=== PATIENT | female | born 1935 | race Hispanic/Latino ===

== ENCOUNTER 2022-02-11 13:39 | Inpatient (IN) | payer OTHER ==
[2022-02-11] VITALS (14 sets, daily range): BP systolic 66–138; BP diastolic 30–72
[~2022-02-11] VITALS: Ht 152.4 cm; Wt 62.2 kg
[2022-02-11 15:44] LABS: BASOPHILS % (AUTO) 0.2 % (0.0-5.0); EOSINOPHILS % (AUTO) 0.2 % (0.0-8.0); HEMATOCRIT 33.6 % (36-48); LYMPHOCYTES % (AUTO) 6.6 % (21.0-51.0); MEAN CORPUSCULAR HGB CONC 31.5 g/dL (32.0-36.0); MONOCYTES % (AUTO) 4.3 % (3.0-13.0); NEUTROPHILS % (AUTO) 87.7 % (40.0-77.0); PLATELET COUNT (AUTO) 310 K/uL (130-400); RED BLOOD CELL COUNT(AUTO) 4.42 MIL/uL (4.00-5.50); RED CELL DISTRIBUTION WIDTH 16.9 % (11.0-15.5); WHITE BLOOD COUNT (AUTO) 23.7 K/uL (4.8-10.8)
[2022-02-11 15:54] LABS: CREATININE 1.2 mg/dL (0.5-1.5); POTASSIUM 4.2 mmol/L (3.5-5.1)
[2022-02-11 15:59] LABS: ALBUMIN 2.8 g/dL (3.5-5.0); TOTAL PROTEIN, SERUM 7.2 g/dL (6.0-8.3)
[2022-02-11 16:26] LABS: APPEARANCE,URINE CLEAR (CLEAR); BILIRUBIN,URINE NEGATIVE (NEGATIVE); COLOR,URINE YELLOW (YELLOW); GLUCOSE, URINE (UA) NEGATIVE (NEGATIVE); KETONES,URINE 5 mg/dL (NEGATIVE); LEUKOCYTE ESTERASE ,URINE 75 Leu/uL (NEGATIVE); NITRATE,URINE NEGATIVE (NEGATIVE); OCCULT BLOOD,URINE NEGATIVE (NEGATIVE); PROTEIN,URINE NEGATIVE (NEGATIVE); UROBILINOGEN,URINE 0.2 mg/dL (0.2-1.0)
[2022-02-11 16:51] LABS: MUCUS,URINE RARE LPF (None Seen); RBC,URINE 0-1 /HPF (0-1); SQUAMOUS EPITHELIAL CELL,UR RARE /HPF (0-2)
[2022-02-11] MEDS ORDERED: BUPIVACAINE/PF 0.5% 10ML VIAL ONE (16:53)
[2022-02-11] MEDS ORDERED: IOHEXOL 350 MG/ML 100ML INFUS..BTL IV ONE (16:54)
[2022-02-11] MEDS ORDERED: ZOSYN 3.375GM +NS 50ML IV ONE (18:00)
[2022-02-11] MEDS ORDERED: PROPOFOL 10 MG/ML 20ML VIAL IV ONE (18:51)
[2022-02-11] MEDS ORDERED: SUCCINYLCHOLINE CHLORIDE 20 MG/ML 10 ML VIAL ONE (18:51)
[2022-02-11] MEDS ORDERED: ROCURONIUM 10MG/1ML SYR 10 MG/ML ML ONE (18:52)
[2022-02-11] MEDS ORDERED: FENTANYL CITRATE PF 50 MCG/1 ML 2ML VIAL ONE (18:52)
[2022-02-11] MEDS ORDERED: MORPHINE 2 MG SYG IV PRN (19:00)
[2022-02-11] MEDS ORDERED: ACETAMINOPHEN 325 MG TAB PO PRN ×3 (19:00→22:00)
[2022-02-11] MEDS ORDERED: ONDANSETRON 4MG INJ IVP PRN (19:00)
[2022-02-11] MEDS ORDERED: 0.9%NACL 1000ML 1,000 ML IV SCH (19:00)
[2022-02-11] MEDS ORDERED: HYDROCODONE/ACETAMINOPHEN 5/325 MG TAB PO PRN (19:00)
[2022-02-11] MEDS: 0.9%NACL 1000ML 1,000 ML IV SCH (19:15)
[2022-02-11] MEDS ORDERED: EPHEDRINE SULFATE 50 MG/ML AMPULE ONE (19:19)
[2022-02-11] MEDS ORDERED: GLYCOPYRROLATE 1 MG/5 ML SYRINGE ONE (20:24)
[2022-02-11] MEDS ORDERED: NEOSTIGMINE 5MG/5ML SYR IV ONE (20:24)
[2022-02-11] MEDS ORDERED: MEPERIDINE-PF 25 MG/ML SYG ONE ×2 (20:46→21:02)
[2022-02-11] MEDS: ONDANSETRON 4MG INJ IVP PRN ×2 (20:49→21:14)
[2022-02-11] MEDS ORDERED: FAMOTIDINE 20MG VIAL IV SCH (21:00)
[2022-02-11] MEDS ORDERED: PANT40TA54 PO (21:50)
[2022-02-11] MEDS ORDERED: AMLO-257 PO (21:50)
[2022-02-11] MEDS ORDERED: LISI20TA24 PO (21:53)
[2022-02-11] MEDS ORDERED: FERR1TAB66 PO (21:53)
[2022-02-11] MEDS ORDERED: METR-172 PO (21:53)
[2022-02-11] MEDS ORDERED: DICY20TA3 PO (21:53)
[2022-02-11] MEDS ORDERED: ACET325C6 PO (21:53)
[2022-02-11] MEDS ORDERED: ONDA-104 PO (21:54)
[2022-02-11] MEDS ORDERED: MAGNESIUM 2GM PREMIX 50ML 50 ML IV PRN (22:00)
[2022-02-11] MEDS ORDERED: KCL 20 MEQ ERTAB PO PRN (22:00)
[2022-02-11] MEDS ORDERED: POTASSIUM CHLORIDE 10% ELIXIR 20 MEQ/15 ML UDCUP PO PRN (22:00)
[2022-02-11] MEDS ORDERED: ONDANSETRON 4MG INJ IV PRN (22:00)
[2022-02-11] MEDS ORDERED: LIDOCAINE HCL-MPF 1% 2ML VIAL IV PRN (22:00)
[2022-02-11] MEDS ORDERED: POTASSIUM CHLORIDE 20MEQ/100ML 100 ML IV PRN (22:00)
[2022-02-11] MEDS ORDERED: ONDANSETRON 4MG INJ IVP SCH (22:40)
[2022-02-11] MEDS: LACTATED RINGERS 1000ML 1,000 ML IV SCH (23:08)
[2022-02-12] VITALS (7 sets, daily range): BP systolic 98–135; BP diastolic 44–59
[2022-02-12 04:29] LABS: BASOPHILS % (AUTO) 0.2 % (0.0-5.0); HEMATOCRIT 31.8 % (36-48); MEAN CORPUSCULAR HEMOGLOBIN 24.3 pg (27.0-33.0); MEAN CORPUSCULAR HGB CONC 31.1 g/dL (32.0-36.0); MEAN CORPUSCULAR VOLUME 78.1 fL (79-99); NEUTROPHILS % (AUTO) 94.7 % (40.0-77.0); PLATELET COUNT (AUTO) 318 K/uL (130-400); RED BLOOD CELL COUNT(AUTO) 4.07 MIL/uL (4.00-5.50); RED CELL DISTRIBUTION WIDTH 17.3 % (11.0-15.5)
[2022-02-12 04:55] LABS: BAND NEUTROPHILS % (MANUAL) 7 % (0-2); CREATININE 1.1 mg/dL (0.5-1.5); LYMPHOCYTES % (MANUAL) 3 % (22-44); MAGNESIUM 1.9 mg/dL (1.80-2.40); MAN.DIFF COMMENT-IMPRESSION MANUAL DIFFERENTIAL; MONOCYTES % (MANUAL) 1 % (2-9); PHOSPHORUS 4.8 mg/dL (2.5-4.9); POTASSIUM 4.6 mmol/L (3.5-5.1); SEGMENTED NEUTROPHILS % 89 % (40-70)
[2022-02-12 04:56] LABS: PLATELET MORPHOLOGY COMMENT ADEQUATE
[2022-02-12 05:03] LABS: WHITE BLOOD COUNT (AUTO) 32.3 K/uL (4.8-10.8)
[2022-02-12] MEDS: FAMOTIDINE 20MG VIAL IV SCH (08:52)
[2022-02-12] MEDS: ENOXAPARIN SODIUM 40 MG/0.4 ML SYRINGE SQ SCH (08:53)
[2022-02-12] MEDS: ZOSYN 3.375GM+NS 50ML 50 ML IV SCH ×2 (08:53→20:56)
[2022-02-12] MEDS ORDERED: FAMOTIDINE 20MG VIAL IV SCH (09:00)
[2022-02-12 09:29] LABS: HEMOGLOBIN A1C 7.1 % (4.0-6.0)
[2022-02-12] MEDS: HYDROCODONE/ACETAMINOPHEN 5/325 MG TAB PO PRN (09:37)
[2022-02-12] MEDS: 0.9%NACL 1000ML 1,000 ML IV SCH (14:33)
[2022-02-12] MEDS: FLUCONAZOLE 200 MG/NS 100 ML IV SCH (14:35)
[2022-02-12] MEDS: LACTATED RINGERS 1000ML 1,000 ML IV SCH (14:40)
[2022-02-12] MEDS: MORPHINE 2 MG SYG IV PRN (18:06)
[2022-02-13] MEDS: MORPHINE 2 MG SYG IV PRN ×2 (00:58→19:23)
[2022-02-13] MEDS: 0.9%NACL 1000ML 1,000 ML IV SCH ×2 (01:01→13:38)
[2022-02-13 03:27] VITALS: BP 141/58
[2022-02-13 07:58] VITALS: BP 149/64
[2022-02-13] MEDS: HYDROCODONE/ACETAMINOPHEN 5/325 MG TAB PO PRN (08:27)
[2022-02-13] MEDS: FAMOTIDINE 20MG VIAL IV SCH (08:27)
[2022-02-13] MEDS: ZOSYN 3.375GM+NS 50ML 50 ML IV SCH ×2 (08:27→21:25)
[2022-02-13] MEDS: ENOXAPARIN SODIUM 40 MG/0.4 ML SYRINGE SQ SCH (08:28)
[2022-02-13 11:42] VITALS: BP 124/56
[2022-02-13] MEDS ORDERED: VANCOMYCIN PROTOCOL PER PHARMACY IV SCH (12:30)
[2022-02-13 12:45] LABS: HEMATOCRIT 27.6 % (36-48); MEAN CORPUSCULAR HEMOGLOBIN 24.2 pg (27.0-33.0); MEAN CORPUSCULAR HGB CONC 31.2 g/dL (32.0-36.0); MEAN CORPUSCULAR VOLUME 77.5 fL (79-99); RED BLOOD CELL COUNT(AUTO) 3.56 MIL/uL (4.00-5.50); RED CELL DISTRIBUTION WIDTH 17.2 % (11.0-15.5); WHITE BLOOD COUNT (AUTO) 14.5 K/uL (4.8-10.8)
[2022-02-13 12:57] LABS: POTASSIUM 4.2 mmol/L (3.5-5.1)
[2022-02-13 13:02] LABS: TOTAL PROTEIN, SERUM 5.6 g/dL (6.0-8.3)
[2022-02-13] MEDS: FLUCONAZOLE 200 MG/NS 100 ML IV SCH (13:37)
[2022-02-13] MEDS: VANCOMYCIN 1G/250ML KIT 250 ML IV SCH (13:38)
[2022-02-13 16:45] VITALS: BP 157/63
[2022-02-13 20:29] VITALS: BP 152/71
[2022-02-14] VITALS (8 sets, daily range): BP systolic 132–170; BP diastolic 63–76
[2022-02-14] MEDS: 0.9%NACL 1000ML 1,000 ML IV SCH ×2 (00:35→14:35)
[2022-02-14] MEDS: MORPHINE 2 MG SYG IV PRN ×2 (01:28→10:03)
[2022-02-14 04:15] LABS: HEMATOCRIT 25.3 % (36-48); MEAN CORPUSCULAR HEMOGLOBIN 23.9 pg (27.0-33.0); MEAN CORPUSCULAR HGB CONC 30.8 g/dL (32.0-36.0); MEAN CORPUSCULAR VOLUME 77.6 fL (79-99); RED BLOOD CELL COUNT(AUTO) 3.26 MIL/uL (4.00-5.50); RED CELL DISTRIBUTION WIDTH 17.1 % (11.0-15.5); WHITE BLOOD COUNT (AUTO) 9.8 K/uL (4.8-10.8)
[2022-02-14 04:26] LABS: CREATININE 0.7 mg/dL (0.5-1.5); POTASSIUM 4.1 mmol/L (3.5-5.1)
[2022-02-14] MEDS: FAMOTIDINE 20MG VIAL IV SCH (09:13)
[2022-02-14] MEDS: ZOSYN 3.375GM+NS 50ML 50 ML IV SCH ×2 (09:13→20:17)
[2022-02-14] MEDS: ENOXAPARIN SODIUM 40 MG/0.4 ML SYRINGE SQ SCH (09:14)
[2022-02-14] MEDS: VANCOMYCIN 1G/250ML KIT 250 ML IV SCH (12:27)
[2022-02-14] MEDS: FLUCONAZOLE 200 MG/NS 100 ML IV SCH (12:27)
[2022-02-14] MEDS: AMLODIPINE 5 MG TAB PO SCH (19:04)
[2022-02-14] MEDS: LISINOPRIL 20 MG TABLET PO SCH ×2 (19:06→20:17)
[2022-02-14] MEDS ORDERED: BISACODYL 5 MG TABLET.DR PO ONE (19:13)
[2022-02-14] MEDS: BISACODYL 5 MG TABLET.DR PO SCH (20:17)
[2022-02-14] MEDS: HYDROCODONE/ACETAMINOPHEN 5/325 MG TAB PO PRN (21:00)
[2022-02-15 04:16] LABS: BASOPHILS % (AUTO) 0.3 % (0.0-5.0); EOSINOPHILS % (AUTO) 2.3 % (0.0-8.0); HEMATOCRIT 26.4 % (36-48); LYMPHOCYTES % (AUTO) 21.7 % (21.0-51.0); MEAN CORPUSCULAR HGB CONC 31.4 g/dL (32.0-36.0); MEAN CORPUSCULAR VOLUME 76.3 fL (79-99); MONOCYTES % (AUTO) 9.9 % (3.0-13.0); NEUTROPHILS % (AUTO) 65.2 % (40.0-77.0); PLATELET COUNT (AUTO) 325 K/uL (130-400); RED BLOOD CELL COUNT(AUTO) 3.46 MIL/uL (4.00-5.50)
[2022-02-15 04:24] LABS: CREATININE 0.7 mg/dL (0.5-1.5); POTASSIUM 3.9 mmol/L (3.5-5.1)
[2022-02-15 04:40] VITALS: BP 148/64
[2022-02-15 07:44] VITALS: BP 176/84
[2022-02-15] MEDS: FAMOTIDINE 20MG VIAL IV SCH (08:16)
[2022-02-15] MEDS: AMLODIPINE 5 MG TAB PO SCH (08:16)
[2022-02-15] MEDS: BISACODYL 5 MG TABLET.DR PO SCH (08:17)
[2022-02-15] MEDS: HYDROCODONE/ACETAMINOPHEN 5/325 MG TAB PO PRN (08:19)
[2022-02-15] MEDS: ENOXAPARIN SODIUM 40 MG/0.4 ML SYRINGE SQ SCH (08:22)
[2022-02-15] MEDS: ZOSYN 3.375GM+NS 50ML 50 ML IV SCH (08:22)
[2022-02-15 11:04] VITALS: BP 118/57
[2022-02-15] MEDS: FLUCONAZOLE 200 MG/NS 100 ML IV SCH (12:22)
[2022-02-15] MEDS: VANCOMYCIN 1G/250ML KIT 250 ML IV SCH (12:22)
[2022-02-15] MEDS ORDERED: 0.9% NACL 250ML 250 ML ONE (12:32)
[2022-02-15] MEDS ORDERED: LEVO-70 PO (13:17)
[2022-02-15] MEDS ORDERED: METR-172 PO (13:17)
[2022-02-16] MEDS ORDERED: IRON CARBONYL PO SCH (09:00)
[2022-02-16] MEDS ORDERED: ASCORBIC ACID PO SCH (09:00)
== END 2022-02-15 16:45 | disposition home or self-care (01) | DRG 853 ==
LOC: EDH 13:39 → EDHIP 13:40 → EDH 18:57 → 4AH 21:13
PROVIDERS: ADMIT Internal Medicine; ATTEND Internal Medicine
PROC: 0DTJ0ZZ Resection of Appendix, Open Approach (ICD-10-PCS; principal; 2022-02-11 18:59)
PROC: 0WJG4ZZ Inspection of Peritoneal Cavity, Percutaneous Endoscopic Approach (ICD-10-PCS; 2022-02-11 18:59)
PROC: 0W9F00Z Drainage of Abdominal Wall with Drainage Device, Open Approach (ICD-10-PCS; 2022-02-11 18:59)
DX: A41.9 Sepsis, unspecified organism (principal); I21.9 Acute myocardial infarction, unspecified; K35.33 Acute appendicitis with perforation, localized peritonitis, and gangrene, with abscess; Z20.822 Contact with and (suspected) exposure to COVID-19; K57.20 Diverticulitis of large intestine with perforation and abscess without bleeding; E44.0 Moderate protein-calorie malnutrition; I10 Essential (primary) hypertension; D64.9 Anemia, unspecified; B96.20 Unspecified Escherichia coli [E. coli] as the cause of diseases classified elsewhere; E11.9 Type 2 diabetes mellitus without complications; I25.2 Old myocardial infarction; Z74.01 Bed confinement status; Z86.73 Personal history of transient ischemic attack (TIA), and cerebral infarction without residual deficits; Z85.43 Personal history of malignant neoplasm of ovary; Z90.11 Acquired absence of right breast and nipple; Z68.26 Body mass index [BMI] 26.0-26.9, adult
CPT/HCPCS: 36415; 74177; 80048; 80053; 81001; 82948; 83036; 83605; 83690; 83735; 84100; 84145; 84484; 85025; 85027; 85651; 86140; 87040; 87070; 87076; 87077; 87088; 87186; 87205; 87635; 92610; 93005; 96365; 96366; 97039; 99291; C9803; G0378; J0330; J1450; J1650; J2175; J2405; J2543; J2704; J2710; J3010; J3370; J3475; J3490; J7030; J7050; J7120; Q9967